=== PATIENT | female | born 1990 | race Caucasian/White ===

== ENCOUNTER 2016-09-17 01:19 | Emergency (ER) | payer MEDICAID ==
[2016-09-17 02:03] VITALS: TEMP 98.6; BMI 38.9
--- NOTE | 2016-09-17 02:04 | EDPRACDOC ---
- General Information Home Medications: Home Medications Cephalexin Monohydrate [Keflex] 500 mg PO Q6H #20 cap 09/17/16 Liraglutide [Victoza 0.6 mg/0.1 ml] 1.8 mg SQ DAILY@0800 #1 pen.injctr 09/17/16 Metformin HCl 1,000 mg PO BID #60 tab 09/17/16 Allergies/Adverse Reactions: Allergies Allergy/AdvReac Type Severity Reaction Status Date / Time fentanyl Allergy Rash-Genera Verified 09/17/16 02:03 lized Penicillins Allergy Anaphylaxis Verified 09/17/16 02:04 * tramadol Allergy Anaphylaxis Verified 09/17/16 02:04 * - History of Present Illness Onset: TONIGHT Complains Of: Reports: High Blood Sugar. Denies: Confusion, Decreased LOC, Nausea, Polyuria, Polydipsia, Polyphagia, Vomiting Relevant History: Reports: IDDM Medication Use: Reports: Stopped Blood Glucose Result: 400 Vomiting - TNTC: No Associated Signs and Symptoms: Reports: Cough, Dysuria, Fever Abdominal Pain Location: Reports: RUQ, RLQ Abdominal Pain Quality: Reports: Aching Other History: PT COMPLAINS OF COUGH, CONGESTION, SORE THROAT, N/V, DYSURIA, BLOOD SUGAR OVER 400 TONIGHT. PT STATES RECENTLY MOVED TO THIS AREA AND "MISPLACED" HER MEDICINE. ED Past Medical History - History Reviewed Yes Nurses notes reviewed and agree except as marked - Patient Medical History Systemic History: Reports: Diabetes - Social Medical History Smoking Status: Heavy tobacco smoker (5 or more cigarettes/day or daily pipe/ cigar) ETOH: None Substance Abuse: None EDM Review of Systems - Review of Systems Constitutional: Fever. negative: Chills Eyes: negative: Blurred Vision, Double Vision Ears: negative: Drainage Throat: Pain Nose: Congestion, Discharge Respiratory: Cough. negative: Shortness of Breath, Wheezing Cardiovascular: negative: Chest Pain, Palpitations Gastrointestinal: Nausea, Pain, Vomiting. negative: Diarrhea Genitourinary: Dysuria, Frequency Neurological: negative: Dizziness, Headache, Numbness, Weakness Musculoskeletal: No Symptoms Reported Integumentary: No Symptoms Reported - Physical Exam Constitutional: Alert (Awake), No apparent distress Oriented to: Time, Person, Place Last recorded Vital Signs: Oxygen Pulse Oxygen Saturation O2 Device Oxygen Flow Rate Fraction of Inspired Oxygen ( FIO2) - HEENT Head: Normal ( normocephalic) Eye Exam: Normal (PERRL, EOMI, Sclera white) Oropharynx: Normal (Pharynx:Moist without exudate,Gums-no swelling) Tympanic Membrane: Normal ENT EAC: Normal TMJ: Normal Nose: No Symptoms Reported (septum midline) Neck: Normal (FROM, trachea at midline) - Respiratory/Cardiovascular Respiratory: Normal - CTA (BBS clear to auscultation without adventitious sounds ) Cardiovascular: Normal (RRR without murmur, gallop or rub) - GI Auscultation: Normal (NABS) Palpation: Normal (Soft,No rebound or guarding, non distended) Tenderness: Diffuse, Mild. negative: Guarding, Rebound, Rigidity Hazel's Sign: Negative - Musculoskeletal Back: Normal (Non-Tender) Extremities: Normal (Normal tone, Pulses 2+ No cyanosis or edema, FROM) - Integumentary Skin: Normal, Warm, Dry Lymphatics: Normal (no adenopathy) - Neurologic Memory Impaired: Normal Motor Function: Normal (Normal tone, Pulses 2+ No cyanosis or edema, FROM) Cranial Nerve: Normal (CN II-X11 intact sensation, strength 5/5) Cerebellar: Normal Mood Description: Normal Perception: Normal - Differential Diagnosis Dehydration, Diabetic Ketoacidosis, Gastritis, Gastroenteritis, Pyelonephritis, UTI - Re-evaluation Re-evaluation 1 Re-evaluation Time: 03:42 (NO DISTRESS) - Results 09/17/16 02:09 09/17/16 02:09 09/17/16 03:42 Laboratory Results - last 24 hr 09/17/16 09/17/16 09/17/16 02:07 02:09 02:09 WBC 8.7 RBC 4.87 Hgb 14.8 Hct 42.7 MCV 88 MCH 30.4 MCHC 34.6 RDW 13.4 Plt Count 189 MPV 9.4 Neut % (Auto) Cancelled Lymph % (Auto) Cancelled [place] % (Auto) Cancelled Eos % (Auto) Cancelled Baso % (Auto) Cancelled Absolute Neuts (auto) Cancelled Absolute Lymphs (auto) Cancelled Seg Neuts % (Manual) 53 Band Neutrophils % 0 Lymphocytes % (Manual) 40 Monocytes % (Manual) 3 Eosinophils % (Manual) 4 Absolute Neutrophils 4.61 Absolute Lymphocytes 3.48 Platelet Estimate Norm RBC Morphology Norm Sodium 134 L Potassium 4.6 Chloride 102 Carbon Dioxide 17 L Anion Gap 20 H BUN 10 Creatinine 0.60 Estimated GFR (MDRD) > 60 Glucose 297 H POC Capillary Glucose 320 H Calculated Osmolality 268 L Calcium 9.5 Corrected Calcium 9.6 Total Bilirubin 0.8 AST 51 H ALT 56 H Alkaline Phosphatase 67 Total Protein 7.3 Albumin 3.9 Urine Color Urine Clarity Urine pH Ur Specific [place] Urine Protein Urine Glucose (UA) Urine Ketones Urine Occult Blood Urine Nitrite Urine Bilirubin Urine Urobilinogen Ur Leukocyte Esterase Urine WBC Ur Epithelial Cells Urine Test 09/17/16 09/17/16 09/17/16 02:25 02:25 03:28 WBC RBC Hgb Hct MCV MCH MCHC RDW Plt Count MPV Neut % (Auto) Lymph % (Auto) [place] % (Auto) Eos % (Auto) Baso % (Auto) Absolute Neuts (auto) Absolute Lymphs (auto) Seg Neuts % (Manual) Band Neutrophils % Lymphocytes % (Manual) Monocytes % (Manual) Eosinophils % (Manual) Absolute Neutrophils Absolute Lymphocytes Platelet Estimate RBC Morphology Sodium Potassium Chloride Carbon Dioxide Anion Gap BUN Creatinine Estimated GFR (MDRD) Glucose POC Capillary Glucose 330 H Calculated Osmolality Calcium Corrected Calcium Total Bilirubin AST ALT Alkaline Phosphatase Total Protein Albumin Urine Color Yellow Urine Clarity Clear Urine pH 6.0 Ur Specific [place] 1.010 Urine Protein Neg Urine Glucose (UA) 3+ H Urine Ketones Neg Urine Occult Blood Neg Urine Nitrite Neg Urine Bilirubin Neg Urine Urobilinogen <2.0 Ur Leukocyte Esterase 2+ H Urine WBC 2-5 Ur Epithelial Cells 2+ Urine Test Neg Decision Time to Discharge: 03:42 - Departure Disposition: Home Condition: Stable Final Diagnosis: NIDDM, Non compliance w medication regimen UTI (urinary tract infection) Qualifiers: Urinary tract infection type: site unspecified Hematuria presence: without hematuria Qualified Code(s): N39.0 - Urinary tract infection, site not specified Instructions: Urinary Tract Infection in Women (ED) Education/Counseling Given To: Patient Education/Counseling Given Regarding: Diagnosis, Treatment, Prognosis, Follow Up Referrals: Gordo Cisneros Jr, MD [Primary Care Provider] - One Week Prescriptions: New Liraglutide [Victoza 0.6 mg/0.1 ml] 1.8 mg SQ DAILY@0800 #1 pen.injctr Metformin HCl 1,000 mg PO BID #60 tab Cephalexin Monohydrate [Keflex] 500 mg PO Q6H #20 cap Additional Instructions: PLEASE TAKE ALL OF YOUR MEDICATIONS BEFORE, RETURN TO THE ED FOR ANY WORSENING SYMPTOMS OR CONCERNS.
[2016-09-17] MEDS ORDERED: ONDANSETRON HCL 4 MG/2 ML VIAL IV ONE (02:06)
[2016-09-17] MEDS ORDERED: DEXTROSE 25 GM/50 ML PFS IV PRN (02:06)
[2016-09-17] MEDS ORDERED: GLUCOSE (ORAL GEL) 15 GM TUBE PO PRN (02:06)
[2016-09-17] MEDS ORDERED: GLUCAGON 1 MG VIAL SQ PRN (02:06)
[2016-09-17] MEDS ORDERED: NS 1,000 ML IV ONE (02:06)
[2016-09-17 02:31] LABS: MPV 9.4 fL (7.4-10.4)
[2016-09-17 02:37] LABS: LEUKOCYTES/URINE 2+ (NEGATIVE); NITRITE/URINE NEG (NEGATIVE); URINE OCCULT BLOOD NEG (NEG/TRACE)
[2016-09-17 02:47] LABS: BLOOD UREA NITROGEN 10 MG/DL (7-17); CALC CORRECTED 9.6 MG/DL (8.4-10.2); CALCIUM 9.5 MG/DL (8.4-10.2); CALCULATED OSMOLALITY 268 MOs/Kg (270-290); CHLORIDE 102 mEq/L (98-107); GLUCOSE 297 mg/dL (70-99); SODIUM LEVEL 134 mEq/L (137-146); TOTAL PROTEIN 7.3 G/DL (6.3-8.2)
[2016-09-17 02:48] LABS: SEG NEUTROPHIL 53 % (45-76)
[2016-09-17] MEDS ORDERED: REGULAR INSULIN 100 UNITS/ML - 3 ML VIAL IV ONE (02:51)
[2016-09-17] MEDS ORDERED: CEFTRIAXONE 1 GM in D5W 100 ML IV ONE (02:51)
[2016-09-17] MEDS ORDERED: MetFORMIN 500 MG IMMED RELEASE TAB PO ONE (03:00)
[2016-09-17 04:37] VITALS: BP 133/71; PULSE 75
== END 2016-09-17 04:35 | disposition home or self-care (01) ==
LOC: ED 01:19
DX: E11.9 Type 2 diabetes mellitus without complications (principal); Z91.14 Patient's other noncompliance with medication regimen; N39.0 Urinary tract infection, site not specified
CPT/HCPCS: 36415; 80053; 81001; 81025; 82962; 85007; 85027; 96361; 96365; 96375; 99283; J0696; J2405; J3490; J7060